=== PATIENT | female | born 1985 | race Caucasian/White ===

== ENCOUNTER 2016-06-05 07:15 | Emergency (ER) | payer MEDICAID ==
[2016-06-05 07:35] VITALS: BMI 42.5
[2016-06-05] MEDS ORDERED: SODIUM CHLORIDE 0.9% 3 ML FLUSH FLUSH PRN (07:49)
[2016-06-05] MEDS ORDERED: NS 1,000 ML IV ONE ×2 (07:49→09:26)
[2016-06-05] MEDS ORDERED: MORPHINE 4 MG/ML INJECTION IV ONE (07:49)
[2016-06-05] MEDS ORDERED: ONDANSETRON HCL 4 MG/2 ML VIAL IV STA (07:49)
--- NOTE | 2016-06-05 07:55 | EDPRACDOC ---
- General Information Chief Complaint: Abdominal Pain Stated Complaint: ABD PAIN/ VOMITING Time Seen by Provider: 06/05/16 07:44 Information Source: Patient Mode Of Arrival: Car Home Medications: Home Medications Montelukast Sodium [Singulair] 10 mg PO DAILY 04/22/14 Ranitidine HCl [Zantac] 150 mg PO BID 04/22/14 Insulin Lispro [Humalog] 0 units SQ .SSI 07/12/15 Oxycodone Immediate Release [Oxycodone Immediate Release (OxyIR)] 10 mg PO Q4- 6H PRN 07/12/15 Albuterol Sulfate [Proair Hfa] 2 puff INH Q4H PRN 10/11/15 Pregabalin [Lyrica] 75 mg PO TID 10/11/15 Metoclopramide HCl [Reglan] 5 mg PO Q8 PRN #30 tab 06/05/16 Allergies/Adverse Reactions: Allergies Allergy/AdvReac Type Severity Reaction Status Date / Time codeine phosphate Allergy Severe Itching Verified 06/05/16 07:35 [From Tylenol-Codeine #3] meloxicam Allergy Severe Angioedema* Verified 06/05/16 07:35 acetaminophen [From Tylenol] Allergy Hives* Verified 06/05/16 07:35 hydrocodone Allergy Itching Verified 06/05/16 07:35 ketorolac tromethamine Allergy RASH Verified 06/05/16 07:35 [From Toradol] tramadol Allergy RASH Verified 06/05/16 07:35 - History of Present Illness Onset: YEST HPI: PT PRESENTS WITH PERIUMBILICAL ABDOMINAL PAIN WITH LOW GRADE FEVER AND N/V WHICH BEGAN LAST NIGHT. Pain Location: Reports: Periumbilical Pain Context: Reports: Spontaneous Pain Severity: Moderate Pain Quality: Reports: Aching Pain Radiation: Reports: No Radiation Last Menstrual Period: JUN 2015 Blood Type: A- Adult Abdominal History: Denies: Urolithiasis, Bowel Obstruction Female Abdominal History: Denies: Urolithiasis Female Associated Signs & Symptoms: Reports: Nausea, Vomiting, Fever (LOW GRADE) . Denies: Diarrhea, Dysuria ED Past Medical History - History Reviewed Yes Nurses notes reviewed and agree except as marked - Patient Medical History Neurological History: Reports: Migraine. Denies: Seizures, Myasthenia Gravis Cardiac History: Reports: Hypertension, Hypercholesterolemia Respiratory History: Reports: Asthma, COPD, Bronchitis GI/ History: Reports: Gastroesophageal Reflux Musculoskeletal History: Denies: Arthritis, Gout, Osteoarthritis Psychological History: Reports: Depression, Anxiety (WAS TAKING XANAX). Denies : Schizophrenia, Bipolar Disorder Systemic History: Reports: Diabetes. Denies: Cancer, Anemia, Hyperthyroidism, Hypothyroidism, Lupus Surgical History: Reports: Cholecystectomy, Other (D&C -09) - Family Medical History Reports: Diabetes (MGM, FATHER, AUNT), Cancer (SISTER). Denies: Hypertension, Stroke, Cardiac Disorders - Social Medical History Smoking Status: Heavy tobacco smoker (5 or more cigarettes/day or daily pipe/ cigar) Lives With: Family Lives In: Home EDM Review of Systems - Review of Systems ROS Negative Except as Marked: Yes All systems reviewed and were negative except as marked Constitutional: Fever, Fatigue Respiratory: negative: Shortness of Breath Cardiovascular: negative: Chest Pain Gastrointestinal: Nausea, Pain, Vomiting. negative: Diarrhea Genitourinary: negative: Dysuria - Physical Exam Constitutional: Alert Oriented to: Time, Person, Place Last recorded Vital Signs: Last Vital Signs Temp 98.4 F 06/05/16 10:01 Pulse 90 06/05/16 10:01 Resp 20 06/05/16 10:01 BP 117/69 06/05/16 10:01 Pulse Ox 98 06/05/16 10:01 Oxygen Pulse Oxygen Saturation 98 O2 Device Oxygen Flow Rate Fraction of Inspired Oxygen ( FIO2) - HEENT Head: negative: Deformity, Laceration Eye Exam: negative: Conjunctival Injection, Pale Conjunctiva Oropharynx: negative: Membranes Dry Nose: negative: Congestion, Discharge Neck: negative: Limited ROM - Respiratory/Cardiovascular Respiratory: Normal - CTA. negative: Accessory Muscle Use, Diminished, Tachypnea Cardiovascular: Tachycardia. negative: Bradycardia, Irregular - GI Auscultation: Increased Palpation: Normal Tenderness: Moderate. negative: Rebound, Rigidity - Musculoskeletal Extremities: Radial Pulse (PALPABLE) - Integumentary Skin: Warm, Dry. negative: Rash - Neurologic Memory Impaired: Normal Motor Function: Normal Mood Description: Anxious Thought: Coherent Perception: Normal - Results 06/05/16 08:20 06/05/16 08:20 WBC 8.5 xk/uL (3.8-10.8) 06/05/16 08:20 RBC 5.46 xM/uL (4.20-5.40) H 06/05/16 08:20 Hgb 15.9 g/dL (12.0-16.0) 06/05/16 08:20 Hct 46.5 % (36-47) 06/05/16 08:20 MCV 85 fL (81-99) 06/05/16 08:20 MCH 29.1 pg (27-32) 06/05/16 08:20 MCHC 34.1 g/dl (33-36) 06/05/16 08:20 RDW 13.5 % (11.5-14.5) 06/05/16 08:20 Plt Count 209 xk/uL (130-400) 06/05/16 08:20 MPV 8.7 fL (7.4-10.4) 06/05/16 08:20 Neut % (Auto) 84.7 % (45-76) H 06/05/16 08:20 Lymph % (Auto) 8.3 % (17-44) L 06/05/16 08:20 [place] % (Auto) 6.0 % (3-10) 06/05/16 08:20 Eos % (Auto) 0.8 % (0-5) 06/05/16 08:20 Baso % (Auto) 0.2 % (0-2) 06/05/16 08:20 Absolute Neuts (auto) 7.14 xk/uL (1.7-8.2) 06/05/16 08:20 Absolute Lymphs (auto) 0.68 xk/uL (0.65-4.75) 06/05/16 08:20 Sodium 139 mEq/L (137-146) 06/05/16 08:20 Potassium 4.3 mEq/L (3.5-5.1) 06/05/16 08:20 Chloride 101 mEq/L (98-107) 06/05/16 08:20 Carbon Dioxide 25 mMOL/L (22-33) 06/05/16 08:20 Anion Gap 17 mEq/L (8-16) H 06/05/16 08:20 BUN 12 MG/DL (7-17) 06/05/16 08:20 Creatinine 0.80 MG/DL (0.52-1.04) 06/05/16 08:20 Estimated GFR (MDRD) > 60 mL/min (>=60) 06/05/16 08:20 Glucose 170 MG/DL (70-99) H 06/05/16 08:20 Calculated Osmolality 272 MOs/Kg (270-290) 06/05/16 08:20 Lactic Acid 1.0 mEq/L (0.7-2.1) 06/05/16 08:20 Calcium 9.4 MG/DL (8.4-10.2) 06/05/16 08:20 Total Bilirubin 0.7 MG/DL (0.2-1.3) 06/05/16 08:20 AST 19 IU/L (14-36) 06/05/16 08:20 ALT 38 IU/L (9-52) 06/05/16 08:20 Alkaline Phosphatase 85 IU/L (38-126) 06/05/16 08:20 Total Protein 7.7 G/DL (6.3-8.2) 06/05/16 08:20 Albumin 4.4 G/DL (3.5-5.0) 06/05/16 08:20 Lipase 29 U/L (23-300) 06/05/16 08:20 Urine Color Yellow 06/05/16 09:25 Urine Clarity Sl cldy 06/05/16 09:25 Urine pH 6.0 (5.0-8.0) 06/05/16 09:25 Ur Specific [place] 1.020 (1.003-1.035) 06/05/16 09:25 Urine Protein 1+ (NEG/TRACE) H 06/05/16 09:25 Urine Glucose (UA) Neg (NEGATIVE) 06/05/16 09:25 Urine Ketones Neg (NEGATIVE) 06/05/16 09:25 Urine Occult Blood Neg (NEG/TRACE) 06/05/16 09:25 Urine Nitrite Neg (NEGATIVE) 06/05/16 09:25 Urine Bilirubin Neg (NEGATIVE) 06/05/16 09:25 Urine Urobilinogen <2.0 MG/DL (0-1) 06/05/16 09:25 Ur Leukocyte Esterase Trace (NEGATIVE) H 06/05/16 09:25 Urine RBC 2-5 (0-5) 06/05/16 09:25 Urine WBC 0-2 (0-5) 06/05/16 09:25 Ur Epithelial Cells 4+ 06/05/16 09:25 Urine Mucus Large (NEG/OCC) 06/05/16 09:25 Urine Test Neg (NEGATIVE) 06/05/16 09:25 Lab Results 06/05/16 06/05/16 06/05/16 09:25 09:25 08:20 WBC 8.5 RBC 5.46 H Hgb 15.9 Hct 46.5 MCV 85 MCH 29.1 MCHC 34.1 RDW 13.5 Plt Count 209 MPV 8.7 Neut % (Auto) 84.7 H Lymph % (Auto) 8.3 L [place] % (Auto) 6.0 Eos % (Auto) 0.8 Baso % (Auto) 0.2 Absolute Neuts (auto) 7.14 Absolute Lymphs (auto) 0.68 Sodium Potassium Chloride Carbon Dioxide Anion Gap BUN Creatinine Estimated GFR (MDRD) Glucose Calculated Osmolality Lactic Acid Calcium Total Bilirubin AST ALT Alkaline Phosphatase Total Protein Albumin Lipase Urine Color Yellow Urine Clarity Sl cldy Urine pH 6.0 Ur Specific [place] 1.020 Urine Protein 1+ H Urine Glucose (UA) Neg Urine Ketones Neg Urine Occult Blood Neg Urine Nitrite Neg Urine Bilirubin Neg Urine Urobilinogen <2.0 Ur Leukocyte Esterase Trace H Urine RBC 2-5 Urine WBC 0-2 Ur Epithelial Cells 4+ Urine Mucus Large Urine Test Neg 06/05/16 06/05/16 08:20 08:20 WBC RBC Hgb Hct MCV MCH MCHC RDW Plt Count MPV Neut % (Auto) Lymph % (Auto) [place] % (Auto) Eos % (Auto) Baso % (Auto) Absolute Neuts (auto) Absolute Lymphs (auto) Sodium 139 Potassium 4.3 Chloride 101 Carbon Dioxide 25 Anion Gap 17 H BUN 12 Creatinine 0.80 Estimated GFR (MDRD) > 60 Glucose 170 H Calculated Osmolality 272 Lactic Acid 1.0 Calcium 9.4 Total Bilirubin 0.7 AST 19 ALT 38 Alkaline Phosphatase 85 Total Protein 7.7 Albumin 4.4 Lipase 29 Urine Color Urine Clarity Urine pH Ur Specific [place] Urine Protein Urine Glucose (UA) Urine Ketones Urine Occult Blood Urine Nitrite Urine Bilirubin Urine Urobilinogen Ur Leukocyte Esterase Urine RBC Urine WBC Ur Epithelial Cells Urine Mucus Urine Test Decision Time to Discharge: 10:58 - Departure Yes I personally saw and evaluated the patient. Disposition: Home Condition: Stable Final Diagnosis: Abdominal pain Qualifiers: Abdominal location: generalized Qualified Code(s): R10.84 - Generalized abdominal pain Nausea & vomiting Qualifiers: Vomiting type: unspecified Vomiting Intractability: non-intractable Qualified Code(s): R11.2 - Nausea with vomiting, unspecified Instructions: Acute Abdominal Pain (ED), Non-pharmacological Pain Management Therapies for Adults (GEN), Abdominal Pain (ED), Acute Nausea and Vomiting (ED) Education/Counseling Given To: Patient Education/Counseling Given Regarding: Diagnosis, Treatment, Prognosis, Follow Up Referrals: Ronald Le PA [Primary Care Provider] - Call for Appointment Prescriptions: New Metoclopramide HCl [Reglan] 5 mg PO Q8 PRN #30 tab PRN Reason: Nausea Continue Ranitidine HCl [Zantac] 150 mg PO BID Montelukast Sodium [Singulair] 10 mg PO DAILY Oxycodone Immediate Release [Oxycodone Immediate Release (OxyIR)] 10 mg PO Q4 -6H PRN PRN Reason: Pain Insulin Lispro [Humalog] 0 units SQ .SSI Pregabalin [Lyrica] 75 mg PO TID Albuterol Sulfate [Proair Hfa] 2 puff INH Q4H PRN PRN Reason: Shortness Of Breath
[2016-06-05 08:33] LABS: AUTOMATED BASOPHIL 0.2 % (0-2); AUTOMATED EOSINOPHIL 0.8 % (0-5); AUTOMATED LYMPH 8.3 % (17-44); AUTOMATED NEUTROPHIL 84.7 % (45-76); MPV 8.7 fL (7.4-10.4)
[2016-06-05 08:46] LABS: BLOOD UREA NITROGEN 12 MG/DL (7-17); CALCIUM 9.4 MG/DL (8.4-10.2); CALCULATED OSMOLALITY 272 MOs/Kg (270-290); CHLORIDE 101 mEq/L (98-107); GLUCOSE 170 MG/DL (70-99); SODIUM LEVEL 139 mEq/L (137-146); TOTAL PROTEIN 7.7 G/DL (6.3-8.2)
[2016-06-05 09:42] LABS: LEUKOCYTES/URINE TRACE (NEGATIVE); NITRITE/URINE NEG (NEGATIVE); URINE OCCULT BLOOD NEG (NEG/TRACE); WBC/URINE 0-2 (0-5)
[2016-06-05] MEDS ORDERED: Pharmacy Review for Metformin - IV Contrast Given SCH (10:00)
[2016-06-05 10:01] VITALS: TEMP 98.4
--- NOTE | 2016-06-05 10:21 | DIRPT ---
CLINICAL DATA: Periumbilical pain, nausea, vomiting, and fever since last night. EXAM: CT ABDOMEN AND PELVIS WITH CONTRAST TECHNIQUE: Multidetector CT imaging of the abdomen and pelvis was performed using the standard protocol following bolus administration of intravenous contrast. CONTRAST: 100 mL of Isovue 370 COMPARISON: October 23, 2015 FINDINGS: Minimal atelectasis posteriorly in the lungs. No suspicious pulmonary nodules, masses, or infiltrates. The lung bases are otherwise normal. There is a fat containing umbilical hernia. No free air or free fluid. The patient is status post cholecystectomy. The liver, portal veins, bile ducts, spleen, adrenal glands, kidneys, and pancreas are normal. No abdominal aortic aneurysm or dissection. No adenopathy. Evaluation of the bowel and stomach is limited without oral contrast. However, within this limitation, the stomach and small bowel are normal. The colon and appendix are normal as well. The pelvis demonstrates no adenopathy. The uterus is normal. The right ovary is somewhat prominent but stable containing a rounded calcification. There is a follicle in the medial aspect of the left ovary of doubtful acute significance. The bladder is decompressed but normal. No other abnormalities are seen within the pelvis. Visualized bones are normal. IMPRESSION: No cause for acute symptoms identified. No evidence for appendicitis. Electronically Signed By: Mesfin Hamm III, M.D On: 06/05/2016 10:18
[2016-06-05 11:29] VITALS: BP 101/64; PULSE 91
[2016-06-05] MEDS ORDERED: SODIUM CHLORIDE 0.9% 3 ML FLUSH FLUSH SCH (18:00)
== END 2016-06-05 11:25 | disposition home or self-care (01) ==
LOC: ED 07:15
DX: R10.84 Generalized abdominal pain (principal); R11.2 Nausea with vomiting, unspecified
CPT/HCPCS: 36415; 74177; 80053; 81001; 81025; 83605; 83690; 85025; 96361; 96374; 96375; 99283; A9698; J2270; J2405